=== PATIENT | female | born 1955 | race Hispanic/Latino ===

== ENCOUNTER 2018-12-16 14:22 | Emergency (ER) | payer SELFPAY ==
--- NOTE | 2018-12-16 16:46 | EDPHYS ---
Physician Documentation [facility] Name: Liz Coy Age: 63 yrs Sex: Female : 1955 Arrival Date: 12/16/2018 Time: 14:25 Bed 9 Private MD: ED Physician Jeff Andrade HPI: 12/16 16:51 This 63 yrs old Female presents to ER via Ambulatory with complaints of Insect snw Bite. 16:51 pt states she was bitten by an insect one week ago to right flank. Onset: The snw symptoms/episode began/occurred suddenly, 1 week(s) ago, and became persistent. Severity of symptoms: At their worst the symptoms were very mild mild. It is unknown whether or not the patient has had similar symptoms in the past. It is unknown whether or not the patient has recently seen a physician. hx of IDDM, history of previous abscess to lower leg. Historical: - Allergies: 14:37 No Known Allergies; hb - Home Meds: 14:37 Lantus 100 unit/mL Sub-Q soln [Active]; Lisinopril Oral [Active]; hb - PMHx: 14:37 Hypertension; Diabetes - IDDM; hb - PSHx: 14:37 Rotator cuff left; Carpal Tunnel Repair; breast left; ; hb - Immunization history:: Adult Immunizations up to date. - Social history:: Smoking status: Patient/guardian denies using tobacco. - Ebola Screening: : No symptoms or risks identified at this time. ROS: 16:50 Constitutional: Negative for fever, chills, and weight loss, Eyes: Negative for injury, snw pain, redness, and discharge, ENT: Negative for injury, pain, and discharge, Neck: Negative for injury, pain, and swelling, Cardiovascular: Negative for chest pain, palpitations, and edema, Respiratory: Negative for shortness of breath, cough, wheezing, and pleuritic chest pain, Abdomen/GI: Negative for abdominal pain, nausea, vomiting, diarrhea, and constipation, Back: Negative for injury and pain, : Negative for injury, bleeding, discharge, and swelling, MS/Extremity: Negative for injury and deformity, Neuro: Negative for headache, weakness, numbness, tingling, and seizure, Psych: Negative for depression, anxiety, suicide ideation, homicidal ideation, and hallucinations. 16:50 Skin: Positive for insect bite to right flank area. Exam: 16:48 Constitutional: This is a well developed, well nourished patient who is awake, alert, snw and in no acute distress. Head/Face: Normocephalic, atraumatic. Eyes: Pupils equal round and reactive to light, extra-ocular motions intact. Lids and lashes normal. Conjunctiva and sclera are non-icteric and not injected. Cornea within normal limits. Periorbital areas with no swelling, redness, or edema. ENT: Nares patent. No nasal discharge, no septal abnormalities noted. Tympanic membranes are normal and external auditory canals are clear. Oropharynx with no redness, swelling, or masses, exudates, or evidence of obstruction, uvula midline. Mucous membranes moist. Neck: Trachea midline, no thyromegaly or masses palpated, and no cervical lymphadenopathy. Supple, full range of motion without nuchal rigidity, or vertebral point tenderness. No Meningismus. Chest/axilla: Normal chest wall appearance and motion. Nontender with no deformity. No lesions are appreciated. Cardiovascular: Regular rate and rhythm with a normal S1 and S2. No gallops, murmurs, or rubs. Normal PMI, no JVD. No pulse deficits. Respiratory: Lungs have equal breath sounds bilaterally, clear to auscultation and percussion. No rales, rhonchi or wheezes noted. No increased work of breathing, no retractions or nasal flaring. Abdomen/GI: Soft, non-tender, with normal bowel sounds. No distension or tympany. No guarding or rebound. No evidence of tenderness throughout. Skin: Warm, dry with normal turgor. Normal color with no rashes, no lesions, and no evidence of cellulitis. MS/ Extremity: Pulses equal, no cyanosis. Neurovascular intact. Full, normal range of motion. Neuro: Awake and alert, GCS 15, oriented to person, place, time, and situation. Cranial nerves II-XII grossly intact. Motor strength 5/5 in all extremities. Sensory grossly intact. Cerebellar exam normal. Normal gait. Psych: Awake, alert, with orientation to person, place and time. Behavior, mood, and affect are within normal limits. 16:48 Back: pain, that is very mild, of the right mid back, mild cellulitis post insect bite one week ago, area minimally indurated, not draining but + opening to mid aspect of widest area of induration. Vital Signs: 14:37 BP 158 / 85; Pulse 96; Resp 16; Temp 97.3(TE); Pulse Ox 97% on R/A; Pain 0/10; hb 17:06 BP 145 / 78; Pulse 90; Resp 18; Pulse Ox 100% on R/A; Pain 2/10; mg2 MDM: 16:28 Patient medically screened. snw 16:50 Data reviewed: vital signs, nurses notes. Data interpreted: Pulse oximetry: on room air snw is 97 %. Interpretation: acceptable. Counseling: I had a detailed discussion with the patient and/or guardian regarding: the historical points, exam findings, and any diagnostic results supporting the discharge/admit diagnosis, the need for outpatient follow up, to return to the emergency department if symptoms worsen or persist or if there are any questions or concerns that arise at home. Special discussion: I have referred the patient to see his PCP for further evaluation of high blood pressure. I discussed in detail with the patient the higher chance of wound infection based on his presenting history. Based on the history and exam findings, there is no indication for further emergent testing or inpatient evaluation. I discussed with the patient/guardian the need to see the primary care provider for further evaluation of the symptoms. 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 Exp: mg2 11/20/2020. Lot #: [id number]. } Route: IM; Site: right deltoid; 17:06 Follow up: Response: No adverse reaction; Medication administered at discharge. mg2 17:06 Drug: Clindamycin 300 mg Route: PO; mg2 17:06 Follow up: Response: No adverse reaction; Medication administered at discharge. mg2 Disposition: 18:03 Co-signature as Attending Physician, Jeff Andrade MD. rn Disposition: 12/16/18 16:46 Discharged to Home. Impression: Cellulitis of back [any part except buttock]. - Condition is Stable. - Discharge Instructions: Skin Abscess, Cellulitis, Adult, Diabetes and Sick Day Management, VIS, Tetanus, Diphtheria (Td) - CDC, Heat Therapy. - Prescriptions for Clindamycin HCl 300 mg Oral Capsule - take 1 capsule by ORAL route every 6 hours for 10 days; 40 capsule. Tylenol- Codeine #3 300-30 mg Oral Tablet - take 2 tablet by ORAL route every 6 hours As needed; 6 tablet. - Work release form, Medication Reconciliation Form, Thank You Letter, Antibiotic Education, Prescription Opioid Use form. - Follow up: Private Physician; When: 2 - 3 days; Reason: Recheck today's complaints, Continuance of care, Re-evaluation by your physician. Follow up: Emergency Department; When: As needed; Reason: Worsening of condition. Signatures: Linda Miller, LIPCOAT SPRAYER-C LIPCOAT SPRAYER-Csnw Jeff Andrade MD MD rn Baxter, Heather, RN RN Liborio Munguia RN RN mg2 Corrections: (The following items were deleted from the chart) 17:08 16:46 12/16/2018 16:46 Discharged to Home. Impression: Cellulitis of back [any part mg2 except buttock]. Condition is Stable. Forms are Medication Reconciliation Form, Thank You Letter, Antibiotic Education, Prescription Opioid Use. Follow up: Private Physician; When: 2 - 3 days; Reason: Recheck today's complaints, Continuance of care, Re-evaluation by your physician. Follow up: Emergency Department; When: As needed; Reason: Worsening of condition. snw
--- NOTE | 2018-12-16 16:46 | ER ---
Nurse's Notes [facility] Name: Liz Coy Age: 63 yrs Sex: Female : 1955 Arrival Date: 12/16/2018 Time: 14:25 Bed 9 Private MD: Diagnosis: Cellulitis of back [any part except buttock] Presentation: 12/16 14:36 Presenting complaint: Insect bite on right flank 1 week ago. Transition of care: hb patient was not received from another setting of care. Onset of symptoms was December 10, 2018. Risk Assessment: Do you want to hurt yourself or someone else? Patient reports no desire to harm self or others. Initial Sepsis Screen: Does the patient meet any 2 criteria? No. Patient's initial sepsis screen is negative. Does the patient have a suspected source of infection? No. Patient's initial sepsis screen is negative. Care prior to arrival: None. 14:36 Method Of Arrival: Ambulatory 14:36 Acuity: EFREN 4 hb Triage Assessment: 17:07 Bite description: bite sustained to right flank by an unknown animal, animal mg2 information: vaccination(s) is unknown. General: Appears in no apparent distress. Historical: - Allergies: 14:37 No Known Allergies; hb - Home Meds: 14:37 Lantus 100 unit/mL Sub-Q soln [Active]; Lisinopril Oral [Active]; hb - PMHx: 14:37 Hypertension; Diabetes - IDDM; hb - PSHx: 14:37 Rotator cuff left; Carpal Tunnel Repair; breast left; ; hb - Immunization history:: Adult Immunizations up to date. - Social history:: Smoking status: Patient/guardian denies using tobacco. - Ebola Screening: : No symptoms or risks identified at this time. Screenin:32 Abuse screen: Denies threats or abuse. Denies injuries from another. Nutritional mg2 screening: No deficits noted. Tuberculosis screening: No symptoms or risk factors identified. Fall Risk None identified. Assessment: 16:30 General: Appears in no apparent distress. comfortable, Behavior is calm, cooperative. mg2 Pain: Complains of pain in right flank Pain does not radiate. Pain currently is 1 out of 10 on a pain scale. Quality of pain is described as aching, Pain began gradually. Neuro: Level of Consciousness is awake, alert, obeys commands, Oriented to person, place, time, situation. Cardiovascular: Capillary refill < 3 seconds Patient's skin is warm and dry. Respiratory: Airway is patent Respiratory effort is even, unlabored, Respiratory pattern is regular, symmetrical. GI: No signs and/or symptoms were reported involving the gastrointestinal system. : No signs and/or symptoms were reported regarding the genitourinary system. EENT: No signs and/or symptoms were reported regarding the EENT system. Derm: Skin is healthy with good turgor, Skin is pink, warm \T\ dry. normal, abscess. Musculoskeletal: No signs and/or symptoms reported regarding the musculoskeletal system. Vital Signs: 14:37 BP 158 / 85; Pulse 96; Resp 16; Temp 97.3(TE); Pulse Ox 97% on R/A; Pain 0/10; hb 17:06 BP 145 / 78; Pulse 90; Resp 18; Pulse Ox 100% on R/A; Pain 2/10; mg2 ED Course: 14:25 Patient arrived in ED. as 14:36 Triage completed. hb 14:37 Arm band placed on. hb 16:19 Daksha Spann, RN is Primary Nurse. aa5 16:28 Linda Miller FNP-C is PHCP. snw 16:28 Jeff Andrade MD is Attending Physician. snw 16:33 No provider procedures requiring assistance completed. Patient did not have IV access mg2 during this emergency room visit. 17:07 Patient has correct armband on for positive identification. 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 Exp: mg2 11/20/2020. Lot #: [id number]. } Route: IM; Site: right deltoid; 17:06 Follow up: Response: No adverse reaction; Medication administered at discharge. mg2 17:06 Drug: Clindamycin 300 mg Route: PO; mg2 17:06 Follow up: Response: No adverse reaction; Medication administered at discharge. mg2 Outcome: 16:46 Discharge ordered by . snw 17:07 Discharged to home ambulatory, with family. mg2 17:07 Condition: stable 17:07 Discharge instructions given to patient, family, Instructed on discharge instructions, follow up and referral plans. medication usage, Demonstrated understanding of instructions, follow-up care, medications, Prescriptions given X 2. 17:08 Patient left the ED. mg2 Signatures: Linda Miller, VECTOR CONTROL ASSISTANT-C VECTOR CONTROL ASSISTANT-Csnw Cherie Greenberg Audri RN RN aa5 Cintia Jara, LIZA RN Liborio Munguia RN RN mg2 Corrections: (The following items were deleted from the chart) 14:52 14:37 BP 158 / 85; Pulse 96bpm; Resp 16bpm; Pulse Ox 97% RA; Temp 79.3F; Pain 0/10; hb hb
[2018-12-16] MEDS ORDERED: TETANUS & DIPHTHERIA TOX,ADULT 0.5 ML VIAL ONE (17:09)
[2018-12-16] MEDS ORDERED: CLINDAMYCIN HCL 150 MG CAP ONE (17:09)
== END 2018-12-16 17:08 | disposition home or self-care (01) ==
LOC: ER 14:22
DX: L03.312 Cellulitis of back [any part except buttock and flank] (principal); I10 Essential (primary) hypertension; E11.9 Type 2 diabetes mellitus without complications; Z79.4 Long term (current) use of insulin; Z23 Encounter for immunization
CPT/HCPCS: 90714; 99283

== ENCOUNTER 2023-07-30 15:06 | Inpatient (IN) | payer MEDICARE ==
[2023-07-30 16:40] LABS: Absolute Lymphocytes (CBC) 1.3 K/uL (0.7-4.9); Hematocrit 32.8 % (36.0-45.0); Lymphocytes % 15.7 % (15.3-44.8); MCV 88.1 fL (80-100); MPV 8.7 fL (7.6-11.3); Platelets 165 thou/uL (152-406); RBC Red Blood Cell Count 3.73 M/uL (3.86-4.86)
[2023-07-30 16:46] LABS: Protime INR 1.08
[2023-07-30 16:57] LABS: Albumin 2.7 g/dL (3.4-5.0); Bilirubin Total 0.7 mg/dL (0.2-1.0); Potassium 3.5 mEq/L (3.5-5.1); Protein, Total 6.7 g/dL (6.4-8.2)
[2023-07-30] MEDS ORDERED: VANCOMYCIN 1.75 GM in NA CHLORIDE 0.9% 500 ML IVPB ONE (17:00)
--- NOTE | 2023-07-30 18:12 | RAD REPORT ---
EXAM DESCRIPTION: CT - Pelvis W/Cont - 07/30/2023 5:27 pm CLINICAL HISTORY: L buttock infection COMPARISON: No comparisons TECHNIQUE: Thin cut axial CT imaging of the pelvis was performed following intravenous administratio n of 100 mL Isovue 300. Multiplanar reformats were generated and reviewed. All CT scans are performed using dose optimization technique as appropriate and may include automated exposure control or mA/KV adjustment according to patient size. FINDINGS: Inflammatory fat stranding with soft tissue swelling involving the gluteal muscle compartm ents, and surrounding the left greater trochanter. Soft tissue swelling with subcutaneous edema exten ds more superficially. The included lateral upper thigh demonstrates skin thickening, although the re mainder of the gluteal region is excluded from the imaging. In the pelvis, mild distal colonic diverticulosis is noted. No evidence of dilated bowel loops or bow el wall thickening. No free air, free fluid or inflammatory stranding. No hernia, mass or bulky lymph adenopathy. The urinary bladder is without significant finding. No suspicious bony findings. IMPRESSION: Inflammatory fat stranding involving the musculature of the pelvis and soft tissues estelita cent to the greater trochanter, suggesting cellulitis, without appreciable fluid collections. No appr eciable sinus tracts. Some of the superficial soft tissues along the left gluteal region most lateral ly are excluded from the imaging.
--- NOTE | 2023-07-30 19:10 | ER ---
Nurse's Notes [facility] Name: Liz Coy Age: 67 yrs Sex: Female : 1955 Arrival Date: 07/30/2023 Time: 15:06 Bed 15 Private MD: Diagnosis: Cellulitis of buttock Presentation: 07/30 15:33 Chief complaint: Patient states: Wound to left him onset July 07. Pt was seen by cm10 policy specialist and was told that she needed to be direct admitted to the hospital due to the wound being infected but could not be admitted to the hospital due to them not accepting her insurance. Coronavirus screen: Vaccine status: Patient reports being unvaccinated. Client denies travel out of the [place] in the last 14 days. Ebola Screen: Patient denies travel to an Ebola-affected area in the 21 days before illness onset. No symptoms or risks identified at this time. Initial Sepsis Screen: Does the patient meet any 2 criteria? HR > 90 bpm. Does the patient have a suspected source of infection? Yes: Skin breakdown/wound. Risk Assessment: Do you want to hurt yourself or someone else? Patient reports no desire to harm self or others. Onset of symptoms was July 30, 2023. 15:33 Method Of Arrival: Ambulatory 10 15:33 Acuity: EFREN 3 cm10 Triage Assessment: 15:36 General: Appears in no apparent distress. comfortable, Behavior is calm, cooperative. cm10 Historical: - Allergies: 15:35 No Known Allergies; cm10 - PMHx: 15:35 Diabetes - IDDM; Hypertension; cm10 - Immunization history:: Adult Immunizations unknown. - Social history:: Smoking status: unknown. Screenin:[address] [facility] ED Fall Risk Assessment (Adult) History of falling in the last 3 months, ko1 including since admission Yes- single mechanical fall (1 pt) Confusion or Disorientation No (0 pts) Intoxicated or Sedated No (0 pts) Impaired Gait No (0 pts) Mobility Assist Device Used No (0 pt) Altered Elimination No (0 pt) Score/Fall Risk Level 0 - 2 = Low Risk Oriented to surroundings, Maintained a safe environment, Educated pt \T\ family on fall prevention, incl call for assistance when getting out of bed, Assessed \T\ reinforced patient's understanding of fall precautions, Provided non-skid footwear, Hourly rounding (assess needs \T\ fall precautionary measures) done, Used ambulatory aids as needed (educated on \T\ assisted with), Used gait belt as appropriate. Abuse screen: Denies threats or abuse. Denies injuries from another. Nutritional screening: No deficits noted. Tuberculosis screening: No symptoms or risk factors identified. Assessment: 16:00 General: Appears in no apparent distress. Behavior is calm, cooperative, appropriate ko1 for age. Pain:. Neuro: No deficits noted. Cardiovascular: No deficits noted. GI: No deficits noted. : No deficits noted. EENT: No deficits noted. 16:00 Respiratory: No deficits noted. ko1 16:00 Pain: Complains of pain in left hip/buttock. Derm: Wound noted left hip/buttock. ko1 Musculoskeletal: No deficits noted. 19:00 General: Appears in no apparent distress. uncomfortable, Behavior is calm, cooperative. jw7 Pain: Complains of pain in lateral aspect of left thigh, buttocks and pelvis Pain does not radiate. Pain currently is 3 out of 10 on a pain scale. Quality of pain is described as throbbing, stinging, Is continuous, Alleviated by medications, rest, Aggravated by increased activity, repositioning, Noted to be grimacing, resistant to movement. Neuro: Nesbitt Agitation-Sedation Scale (RASS): 0 - Alert and Calm Level of Consciousness is awake, alert, obeys commands, Oriented to person, place, time, situation. Cardiovascular: No deficits noted. Respiratory: No deficits noted. GI: No deficits noted. No signs and/or symptoms were reported involving the gastrointestinal system. : No deficits noted. No signs and/or symptoms were reported regarding the genitourinary system. EENT: No deficits noted. No signs and/or symptoms were reported regarding the EENT system. Derm: Wound noted left hip and lateral aspect of left thigh. Musculoskeletal: Swelling present in right leg and left leg. 20:20 Reassessment: Patient appears in no apparent distress at this time. No changes from jw7 previously documented assessment. Patient and/or family updated on plan of care and expected duration. Pain level reassessed. Patient is alert, oriented x 3, equal unlabored respirations, skin warm/dry/pink. 21:17 Reassessment: Patient appears in no apparent distress at this time. No changes from jw7 previously documented assessment. Patient and/or family updated on plan of care and expected duration. Pain level reassessed. Patient is alert, oriented x 3, equal unlabored respirations, skin warm/dry/pink. 21:24 General: attempted to call report, nurse will call back. 7 Vital Signs: 15:33 BP 105 / 74; Pulse 102; Resp 18; Temp 98.1; Pulse Ox 96% on R/A; Weight 120.66 kg; cm10 Height 5 ft. 5 in. ; 17:00 BP 109 / 65; Pulse 83; Resp 16; Pulse Ox 98% ; ko1 18:21 BP 105 / 60; Pulse 77; Resp 18; Pulse Ox 99% ; ko1 19:07 BP 105 / 50; Pulse 78; Resp 17; Pulse Ox 97% ; jw7 20:51 BP 96 / 48; Pulse 75; Resp 17 S; Pulse Ox 97% on R/A; jw7 21:17 BP 103 / 50; Pulse 74; Resp 16 S; Pulse Ox 96% on R/A; jw7 15:33 Body Mass Index 44.26 (120.66 kg, 165.1 cm) cm10 ED Course: 15:09 Patient arrived in ED. mr 15:33 Brendon Bates MD is Attending Physician. ec2 15:35 Triage completed. cm10 15:36 Arm band placed on Patient placed in waiting room. cm10 15:50 Felisa Looney, LIZA is Primary Nurse. ko1 16:00 Patient has correct armband on for positive identification. Bed in low position. Call ko1 light in reach. Side rails up X2. Provided Education on: na. Pulse ox on. NIBP on. Door closed. Noise minimized. Lights dimmed. Warm blanket given. 16:00 Inserted saline lock: 20 gauge in left forearm, using aseptic technique. Blood ko1 collected. 16:23 Blood Culture Adult (2) Sent. ko1 16:23 CBC with Diff Sent. ko1 16:23 CMP Sent. ko1 16:23 Lactate w/ 2H reflex if indic. Sent. ko1 16:23 Protime (+inr) Sent. ko1 16:23 Ptt, Activated Sent. ko1 17:29 CT Pelvis w cont In Process Unspecified. EDMS 19:10 Maximus Worthington MD is Hospitalizing Provider. ec2 20:11 Primary Nurse role handed off by Felisa Looney, LIZA as6 20:50 Mercedes Sigala, RN is Primary Nurse. jw7 21:23 No provider procedures requiring assistance completed. Patient admitted, IV remains in jw7 place. Administered Medications: 16:19 Drug: vancoMYCIN IVPB 15 mg/kg IVPB once; once over 2 hrs; not to exceed 2 grams; (mix db in 250 to 500 mL NS) Route: IVPB; Site: left forearm; 19:49 Follow up: Response: No adverse reaction; IV Status: Completed infusion; IV Intake: jw7 250ml Medication: 18:21 VIS not applicable for this client. ko1 Intake: 19:49 IV: 250ml; Total: 250ml. [facility] Outcome: 19:10 Decision to Hospitalize by Provider. ec2 21:23 Admitted to Tele accompanied by nurse, via wheelchair, room 427, jw7 21:23 Condition: stable 21:23 Instructed on the need for admit, Demonstrated understanding of instructions, 21:57 Patient left the ED. kl Signatures: Dispatcher [employer] EDFina Rocha, RN LIZA Gracia Elaine, Reg Reg DenzelkeniaHumberto chaudhary, RN RN as6 Mercedes Sigala, RN RN jw Felisa Looney, LIZA RN ko1 Elizabeth Tate RN RN db Martinez, Clarissa, RN RN cmBrendon Blakely MD MD ec2 Corrections: (The following items were deleted from the chart) 15:36 15:33 Chief complaint: Patient states: Wound to left him onset July 07. Pt was seen cm10 by doctor and was told that she needed to be direct admitted to the hospital due to the wound being infected but could not be admitted to the hospital due to them not accepting her insurance. cm10 17:43 16:00 Respiratory: No deficits noted. ko1 ko1
--- NOTE | 2023-07-30 19:11 | EDPHYS ---
Physician Documentation [facility] Name: Liz Coy Age: 67 yrs Sex: Female : 1955 Arrival Date: 07/30/2023 Time: 15:06 Bed 15 Private MD: ED Physician Brendon Bates HPI: 07/30 15:43 This 67 yrs old Female presents to ER via Ambulatory with complaints of Wound ec2 Infection. 15:43 Patient arrives today due to concern for left buttock wound. He states that ec2 approximately 1 month ago she had a pressure ulcer and is concerned that she is now having an infection at this area. States that she has been changing the bandages at home and maybe has noted some discharge. Patient reports no fevers or chills, no nausea or vomiting. Patient is not currently on antibiotics for this. Patient states that she was seen by seed and fertilizer specialist and told to have further assessment for this.. Historical: - Allergies: 15:35 No Known Allergies; cm10 - PMHx: 15:35 Diabetes - IDDM; Hypertension; cm10 - Immunization history:: Adult Immunizations unknown. - Social history:: Smoking status: unknown. ROS: 15:43 Constitutional: as per hpi ec2 Exam: 15:43 Constitutional: GEN: NAD Head: atraumatic Eyes: EOMI Ears: External ears are ec2 normal. CV: regular rate LUNGS: no respiratory distress ABD: non-distended SKIN: Left buttock with large 6 x 6 cm lesion, well-healing eschar noted, surrounding erythema with questionable drainage appreciated, no significant fluctuance appreciated. MSK: no evidence of trauma NEURO: moves all extremities equally Vital Signs: 15:33 BP 105 / 74; Pulse 102; Resp 18; Temp 98.1; Pulse Ox 96% on R/A; Weight 120.66 kg; cm10 Height 5 ft. 5 in. ; 17:00 BP 109 / 65; Pulse 83; Resp 16; Pulse Ox 98% ; ko1 18:21 BP 105 / 60; Pulse 77; Resp 18; Pulse Ox 99% ; ko1 19:07 BP 105 / 50; Pulse 78; Resp 17; Pulse Ox 97% ; jw7 20:51 BP 96 / 48; Pulse 75; Resp 17 S; Pulse Ox 97% on R/A; jw7 21:17 BP 103 / 50; Pulse 74; Resp 16 S; Pulse Ox 96% on R/A; jw7 15:33 Body Mass Index 44.26 (120.66 kg, 165.1 cm) cm10 MDM: 15:33 Patient medically screened. ec2 15:43 ED course: Patient arrives today due to concern for wound infection. Examination ec2 remarkable for skin findings as noted above. Will obtain lab work, CT of the pelvis with contrast and give the patient empiric antibiotics. Currently considering process such as soft tissue skin infection, osteomyelitis, low suspicion for abscess, also considering generally poor healing wound.. 16:58 ED course: Patient's lab work remarkable for reassuring CBC without leukocytosis, ec2 metabolic profile with appropriate electrolytes and slightly diminished renal function with a GFR 53, lactic acid within normal ranges. . 19:09 ED course: I discussed the results with the patient and recommended inpatient admission ec2 given the extent of the wound. Patient has multiple comorbidities that predispose her to poor wound healing I feel she would be best suited in the inpatient setting. I discussed case with hospitalist who agrees to accept the patient for admission.. 19:10 Data reviewed: vital signs. ec2 07/30 15:43 Order name: Blood Culture Adult (2) ec2 07/30 15:43 Order name: CBC with Diff; Complete Time: 16:58 ec2 07/30 15:43 Order name: CMP; Complete Time: 16:58 ec2 07/30 15:43 Order name: Lactate w/ 2H reflex if indic.; Complete Time: 16:58 ec2 07/30 15:43 Order name: Protime (+inr); Complete Time: 16:58 ec2 07/30 15:43 Order name: Ptt, Activated; Complete Time: 16:58 ec2 07/30 20:51 Order name: Urinalysis w/ reflexes EDMS 07/30 20:55 Order name: Vancomycin Level Trough EDMS 07/30 15:43 Order name: CT Pelvis w cont; Complete Time: 18:20 ec2 07/30 15:43 Order name: EKG; Complete Time: 15:43 ec2 07/30 20:51 Order name: [facility] EDMS 07/30 15:43 Order name: Accucheck; Complete Time: 18:56 ec2 07/30 15:43 Order name: Cardiac monitoring; Complete Time: 15:51 ec2 07/30 15:43 Order name: EKG - Nurse/Tech; Complete Time: 18:56 ec2 07/30 15:43 Order name: IV Saline Lock - Large Bore; Complete Time: 16:23 ec2 07/30 15:43 Order name: Labs collected and sent; Complete Time: 16:23 ec2 07/30 15:43 Order name: O2 Per Protocol; Complete Time: 15:52 ec2 07/30 15:43 Order name: O2 Sat Monitoring; Complete Time: 15:52 ec2 07/30 15:43 Order name: Vital Signs; Complete Time: 15:52 ec2 Administered Medications: 16:19 Drug: vancoMYCIN IVPB 15 mg/kg IVPB once; once over 2 hrs; not to exceed 2 grams; (mix db in 250 to 500 mL NS) Route: IVPB; Site: left forearm; 19:49 Follow up: Response: No adverse reaction; IV Status: Completed infusion; IV Intake: jw7 250ml Disposition Summary: 07/30/23 19:10 Hospitalization Ordered Notes: Hospitalization Status: Inpatient Admission ec2 Provider: Maximus Worthington ec2 Location: Telemetry/MedSurg (Inpatient) ec2 Condition: Stable ec2 Problem: an acute exacerbation ec2 Symptoms: are unchanged ec2 Bed/Room Type: Standard ec2 Room Assignment: [facility](07/30/23 21:06) Diagnosis - Cellulitis of buttock ec2 Forms: - Medication Reconciliation Form ec2 - SBAR form ec2 - Leadership Thank You Letter ec2 Signatures: Dispatcher [employer] Garima Maradiaga RN RN mw Elizabeth Tate RN RN db Martinez, Clarissa, RN RN 10 Brendon Bates MD MD ec2 Mercedes Sigala RN jw7 Corrections: (The following items were deleted from the chart) 21:06 19:10 ec2 mw
[2023-07-30] MEDS ORDERED: ACETAMINOPHEN 325 MG TABLET PO PRN (20:46)
[2023-07-30] MEDS ORDERED: ONDANSETRON 4 MG/2 ML VIAL IV PRN (20:46)
--- NOTE | 2023-07-30 20:54 | P.HP ---
Certification for Inpatient Patient admitted to: Inpatient With expected LOS: >2 Midnights Practitioner: I am a practitioner with admitting privileges, knowledge of patient current condition, hospital course, and medical plan of care. Services: Services provided to patient in accordance with Admission requirements found in Title 42 Section 412.3 of the Code of Federal Regulations Patient History Date of Service: 07/31/23 Reason for admission: Keep wound infection. History of Present Illness: 67-year-old female patient with medical history significant for diabetes type 2, hypertension who recently developed a wound. She was being taken care of on outpatient basis by her daughter and recently developed increased pain in the wound with some redness. No issues with recent trauma, fever, chills, rigor, nausea, vomiting, diarrhea. She reported that that has been taking care of her wound for the past couple of weeks however because of increased redness she decided to come to the hospital. She was evaluated and found to have suspicion for infection so she was admitted for inpatient care. Allergies No Known Allergies Allergy (Unverified 11/30/15 18:17) Home Medications: Lisinopril [Zestril] 10 mg PO DAILY 11/30/15 Insulin Degludec [Tresiba Flextouch U-200] 40 units SQ DAILY 07/31/23 Rosuvastatin [Crestor*] 10 mg PO DAILY 07/31/23 carvediloL [Coreg*] 6.25 mg PO BID 07/31/23 - Past Medical/Surgical History Diabetic: Yes -: Hypertension -: Hyperlipidemia -: Rotator cuff-left -: carpal tunnel repair -: breast left -: Review of Systems General: Unremarkable Eyes: Unremarkable ENT: Unremarkable Respiratory: Unremarkable Cardiovascular: Unremarkable Gastrointestinal: Unremarkable Genitourinary: Unremarkable Musculoskeletal: Unremarkable Integumentary: Lesions Neurological: Unremarkable Physical Examination - Physical Exam General: Alert, Oriented x3 HEENT: Atraumatic, Normocephalic Neck: Supple Respiratory: Normal air movement Cardiovascular: Regular rate/rhythm, Normal S1 S2 Gastrointestinal: Soft and benign Integumentary: Skin breakdown, Skin lesion Neurological: Normal speech, Normal strength at 5/5 x4 extr - Studies Laboratory Data (last 24 hrs) 07/30/23 07/30/23 07/30/23 16:17 16:17 16:17 WBC 8.20 Hgb 11.0 L Hct 32.8 L Plt Count 165 PT 11.9 INR 1.08 APTT 34.1 Sodium 139 Potassium 3.5 BUN 20 H Creatinine 1.12 H Glucose 187 H Total Bilirubin 0.7 AST 11 L ALT 19 Alkaline Phosphatase 80 Assessment and Plan - Plan Hip wound infection: Patient has significant wound infection deemed stage II/III decubitus ulcer. There is a scab over wound. We will continue empiric antibiotic therapy with vancomycin and cefepime. Cultures were taken.. We will continue routine wound care and wound care center consult has been placed. We will make final plans for outpatient care. Diabetes type 2: We will continue sliding scale insulin for glucose control outpatient antidiabetic medications. Carb restricted diet to be continued. Hypertension: We will monitor vital signs per protocol and continue antihyperte nsive medications. Hyperlipidemia: We will continue statin therapy. Prophylaxis: Lovenox for DVT prophylaxis CODE STATUS: Full code Disposition: We will make final recommendation for hip wound and treat infectious process in the wound and discharge her when her care plan is finalized. - Advance Directives Does patient have a Living Will: No Does patient have a Durable POA for Healthcare: No
[2023-07-30] MEDS ORDERED: VANCOMYCIN 1.5 GM in NA CHLORIDE 0.9% 500 ML IVPB SCH (21:00)
[2023-07-30] MEDS: NA CHLORIDE 0.9% 1,000 ML IV SCH (21:00)
[2023-07-31] MEDS ORDERED: D50W 25 GM/50 ML SYRINGE IV PRN (03:39)
[2023-07-31] MEDS ORDERED: GLUCAGON 1 MG/VIAL IM PRN (03:39)
[2023-07-31] MEDS ORDERED: D10W 125 ML IV PRN (03:58)
[2023-07-31] MEDS: NA CHLORIDE 0.9% 1,000 ML IV SCH ×2 (07:00→18:57)
[2023-07-31] MEDS: INSULIN REGULAR (HUMAN) 100 UNIT/ML SQ SCH ×4 (07:30→21:19)
--- NOTE | 2023-07-31 08:57 | P.PN ---
Subjective Date of Service: 07/31/23 Chief Complaint: Hip wound infection. Subjective: No new changes Review of Systems 10-point ROS is otherwise unremarkable Musculoskeletal: Other (hip pain) Physical Examination - Vital Signs Temperature: 97.8 F Blood Pressure: 107/46 Pulse: 68 Respirations: 16 Pulse Ox (%): 94 - Physical Exam General: Alert, In no apparent distress, Oriented x3 HEENT: Atraumatic, PERRLA, EOMI Neck: Supple, JVD not distended Respiratory: Clear to auscultation bilaterally, Normal air movement Cardiovascular: Regular rate/rhythm, Normal S1 S2 Gastrointestinal: Normal bowel sounds, No tenderness Musculoskeletal: No tenderness Integumentary: Diabetic ulcer, Pressure ulcer (Left lateral thight area with surrounding cellulitis) Neurological: Normal speech, Normal tone, Normal affect Lymphatics: No axilla or inguinal lymphadenopathy - Studies Laboratory Data (last 24 hrs) 07/30/23 07/30/23 07/30/23 16:17 16:17 16:17 WBC 8.20 Hgb 11.0 L Hct 32.8 L Plt Count 165 PT 11.9 INR 1.08 APTT 34.1 Sodium 139 Potassium 3.5 BUN 20 H Creatinine 1.12 H Glucose 187 H Total Bilirubin 0.7 AST 11 L ALT 19 Alkaline Phosphatase 80 Assessment And Plan - Plan Assessment: Pressure/diabetic ulceration left lateral thigh with surrounding cellulitis Diabetes mellitus type 2insulin-dependent Hypertension Hyperlipidemia Plan: Pressure/diabetic ulceration left lateral thigh with surrounding cellulitis General surgery/ID/wound healing consult-appreciate input Empiric Vanc/cefepime, follow blood cultures Diabetes mellitus type 2insulin-dependent ACHS accucheck SSI, reduced dose long acting. Hypertension Hyperlipidemia Continue home meds DVT PPX: Lovenox Code status: Full Discharge Plan: Home Plan to discharge in: 48 Hours - Code Status/Comfort Care Code Status Assessed: Yes (Full ) Critical Care: No Time Spent Managing PTS Care (In Minutes): 20
[2023-07-31] MEDS: ENOXAPARIN 40 MG/0.4 ML SQ SCH (09:00)
--- NOTE | 2023-07-31 11:56 | EKG ---
Test Date: 2023-07-30 Test Time: 16:44:40 Chemistry Physics Teacher: ADITHYA MEASUREMENT RESULTS: Intervals: Rate: 81 NE: 148 QRSD: 188 QT: 610 QTc: 708 [place]: P: 32 NE: 148 QRS: -10 T: 29 INTERPRETIVE STATEMENTS: Normal sinus rhythm Right atrial enlargement Nonspecific intraventricular block Possible Lateral infarct, age undetermined Abnormal ECG Compared to ECG 12/01/2015 06:58:15 Atrial abnormality now present Myocardial infarct finding now present Left ventricular hypertrophy no longer present Electronically Signed On 07-31-23 11:55:28 CDT by Toni Branch
--- NOTE | 2023-07-31 13:03 | CON ---
Date of Consultation: 07/31/2023 Reason For Consultation: Left hip wound. History Of Present Illness: Patient is a 67-year-old female with multiple medical problems, who on O ctober 1st got stuck in her tub, could not get out, stayed there for 25 hours before she was removed and went to the ER in [facility], was discharged with the basic wound care instructions. Howev er, wound has not healed, it got worse, increasing redness, no discharge. No fever or chills. No so re throat, runny nose, cough, headaches, or dizziness. No chest pain. Review of Systems: Otherwise, unremarkable. Past Medical History: Morbid obesity, hypertension, hyperlipidemia. Past Surgical History: Rotator cuff, left-sided repair; carpal tunnel repair; breast lift; and C-sec tion. Allergies: NONE. Social History: Patient does not smoke or drink. Family History: Noncontributory. Physical Examination: Vital Signs: Stable. She is afebrile. General: Awake, alert, oriented x3. Head and Neck: No masses. Chest: Clear. Heart: S1, S2. Abdomen: Soft. Extremities: Neurovascularly intact. Left hip: There is approximately a 10 x 15 cm area of erythem a, slight warmth with a central necrotic eschar present, black in color. No purulent discharge. No fluctuance per se. Neuro: Nonfocal. Laboratory Data: White count is 8.2, left shift. INR is 1.08. Chemistry reviewed. Lactic acid is 0.9. CT of the pelvis reviewed shows inflammatory fat stranding involving the musculature of the pel vis, soft tissue adjacent to the greater trochanter suggesting cellulitis without appreciable fluid c ollection. No soft tissue along the gluteal region most laterally are excluded from the i maging. Assessment: Left hip infected wound with cellulitis and necrotic eschar. Recommendations: NPO, IV fluids, IV antibiotics, to the OR for debridement of this wound. Patient u nderstands risks, benefits, alternatives and agrees to procedure. Based on the finding, most likely the patient would benefit from a wound VAC with collagenase dressing. /MODL Voice ID: [id number] Report ID: [id number]
[2023-07-31] MEDS ORDERED: NA CHLORIDE 0.9% 1,000 ML ONE (15:39)
--- NOTE | 2023-07-31 15:51 | P.CNS ---
Date of Consult: 07/31/23 Chief Complaint: Hip wound infection. History of Present Illness: Patient is a 67 yo female with a past medical history of diabetes mellitus type II, hypertension, obesity and hyperlipidemia who presented to the ED with complaints of worsening left hip wound. She reports being stuck in a bathtub for 24 hours a 3 weeks ago which resulted in a wound. She was seen at an outside ER and sent home with wound care instructions. The wound has been worsening with increasing erythema for which prompted her to present to the ED here at [facility]. She was admitted for cellulitis left hip. Infectious disease and general surgery consulted. Allergies No Known Allergies Allergy (Unverified 11/30/15 18:17) Home Medications: Lisinopril [Zestril] 10 mg PO DAILY 11/30/15 Insulin Degludec [Tresiba Flextouch U-200] 40 units SQ DAILY 07/31/23 Rosuvastatin [Crestor*] 10 mg PO DAILY 07/31/23 carvediloL [Coreg*] 6.25 mg PO BID 07/31/23 - Past Medical/Surgical History Diabetic: Yes -: Hypertension -: Hyperlipidemia -: Rotator cuff-left -: carpal tunnel repair -: breast left -: - Social History Smoking Status: Unknown if ever smoked Alcohol use: No CD- Drugs: No Place of Residence: Home Review of Systems 10-point ROS is otherwise unremarkable Integumentary: As per HPI Physical Examination Temp Pulse Resp BP Pulse Ox 97.7 F 75 16 108/62 95 07/31/23 11:41 07/31/23 11:41 07/31/23 11:41 07/31/23 11:41 07/31/23 11:41 General: Alert, In no apparent distress, Oriented x3 HEENT: Atraumatic, Normocephalic Neck: Supple Respiratory: Clear to auscultation bilaterally, Normal air movement Cardiovascular: Regular rate/rhythm Gastrointestinal: Normal bowel sounds, Soft and benign Integumentary: Pressure ulcer (left hip/thigh unstageable) Neurological: Normal speech, Normal tone, Normal affect Laboratory Data - Reviewed Microbiology Data - Reviewed Imagings Data: - Reviewed Conclusions/Impression: Problem List Pressure Injury Unstageable Left hip/thigh with cellulitis Diabetes Mellitus type II Hypertension Hyperlipidemia Unstageable Pressure Injury Left Hip/Thigh Cellulitis - Currently on Cefepime and Vancomycin (started 07/31) - Wound cultures 07/30: pending - Pending debridement this afternoon Blood cultures 07/30: Pending WBC 8.2 Afebrile. Recommendations - Continue Cefepime and Vancomycin for now - General surgery Dr. Oneill consulted for debridement. Scheduled for this afternoon. - Follow up with wound and blood culture results - Monitor WBC and fever trends - Wound care per Dr. Oneill Case discussed with Bautista Booth
[2023-07-31] MEDS: CEFEPIME 2 GM in NA CHLORIDE 0.9% 100 ML IV SCH ×2 (16:05→21:14)
[2023-07-31] MEDS ORDERED: propofoL 200 MG/20 ML VIAL IV ONE (16:18)
[2023-07-31] MEDS ORDERED: MIDAZOLAM HCL 2 MG/2 ML INJ ONE (16:18)
[2023-07-31] MEDS ORDERED: FENTANYL CITR 100 MCG/2 ML ONE (16:18)
[2023-07-31] MEDS ORDERED: dexAMETHasone 10 MG/ML VIAL ONE (16:40)
[2023-07-31] MEDS ORDERED: ONDANSETRON 4 MG/2 ML VIAL ONE (16:40)
--- NOTE | 2023-07-31 16:47 | P.OP ---
Date of Service: 07/31/23 Preop diagnosis: Infected wound left hip Postop diagnosis: Same Procedure performed: Excisional debridement of infected left hip wound 9 x 7 x 4 cm to the deep subcutaneous tissue level Surgeon: Olivier Oneill MD Hat And Cap Sewer: lAee HORVATH Estimated blood loss: Minimal Specimen: Infected tissue for culture and sensitivity and pathology Findings: As above Anesthesia: General Complications: None Drains: None Fluids and blood products: Nonapplicable Disposition: Recovery room Operative note: Patient brought to the OR and placed in supine position. General anesthesia begun. Patient placed in the right lateral position. Patient prepped and draped in usual sterile fashion. Marcaine 0.5% infiltrated locally. Then 15 blade used to make a 9 x 7 cm incision around the necrotic eschar on the left lateral hip region. Cautery used to exercises and infected next necrotic eschar down through the deep subcutaneous tissue. Deepest portion of the wound was approximately 4 cm. Entire tissue was excised and a portion was sent to pathology for culture and sensitivity. Remainder was sent to pathology for cytology. Entire wound irrigated and bleeding controlled cautery. Wet-to-dry normal saline dressing change applied. Sterile dressing applied and patient awakened. Patient taken to recovery room in good general condition. CC:
[2023-07-31] MEDS: KETOROLAC 30 MG/ML INJ ONE ×2 (16:55→16:57)
[2023-07-31] MEDS: FENTANYL CITR 100 MCG/2 ML ONE ×3 (16:57→17:11)
[2023-07-31] MEDS ORDERED: HYDROMORPHONE HCL 1 MG/ML INJ IV PRN (16:58)
[2023-07-31] MEDS ORDERED: HYDROCODONE/APAP 7.5/325 MG TAB PO PRN (16:58)
[2023-07-31] MEDS ORDERED: BUPIVACAINE 0.5% PF 10 ML VIAL ONE (17:13)
[2023-07-31] MEDS ORDERED: VANCOMYCIN 2 GM in NA CHLORIDE 0.9% 500 ML IVPB SCH (18:00)
[2023-07-31] MEDS: VANCOMYCIN 2 GM in NA CHLORIDE 0.9% 500 ML IVPB SCH (18:55)
[2023-07-31] MEDS: JUVEN PACKET PO SCH (21:00)
[2023-08-01] MEDS: CEFEPIME 2 GM in NA CHLORIDE 0.9% 100 ML IV SCH ×3 (06:13→21:47)
[2023-08-01 06:51] LABS: Hematocrit 32.3 % (36.0-45.0); MCV 87.9 fL (80-100); MPV 8.7 fL (7.6-11.3); Platelets 191 thou/uL (152-406); RBC Red Blood Cell Count 3.68 M/uL (3.86-4.86)
[2023-08-01] MEDS: INSULIN REGULAR (HUMAN) 100 UNIT/ML SQ SCH ×4 (07:30→21:49)
--- NOTE | 2023-08-01 08:02 | P.PN ---
Date of Service: 08/01/23 Chief Complaint: Hip wound infection. Subjective: Patient sitting up on side of bed. In no apparent distress. She denies any new or worsening complaints. No acute events reported overnight. s/p debridement yesterday, tolerated procedure well. Physical Examination Temp Pulse Resp BP Pulse Ox 97 F 72 18 111/51 L 97 08/01/23 04:00 08/01/23 04:00 08/01/23 04:00 08/01/23 04:00 08/01/23 04:00 General: Alert, In no apparent distress, Oriented x3 HEENT: Atraumatic, Normocephalic Neck: Supple Respiratory: Clear to auscultation bilaterally, Normal air movement Cardiovascular: Regular rate/rhythm Gastrointestinal: Normal bowel sounds, Soft and benign Integumentary: Pressure ulcer left hip/thigh dressing clean dry and intact. Neurological: Normal speech, Normal tone, Normal affect Laboratory Data - Reviewed Microbiology Data - Reviewed Imagings Data: - Reviewed Medications List: Reviewed Assessment and Plan Problem List Pressure Injury Unstageable Left hip/thigh with cellulitis Diabetes Mellitus type II Hypertension Hyperlipidemia Unstageable Pressure Injury Left Hip/Thigh Cellulitis - Currently on Cefepime and Vancomycin (started 07/31) - Wound cultures 07/30: 3+ coagulase positive staph and 3+ gram negative rods - s/p debridment on 07/[address] Oneill Blood cultures 07/30: No growth to date WBC 7.6 Afebrile Recommendations - Continue Cefepime and Vancomycin for now - Follow up with wound culture results. Preliminary with coag-positive staph and gram negative rods. - Wound care per Dr. Oneill - Strict blood glucose control - Monitor WBC and fever trends Case discussed with Bautista Booth
--- NOTE | 2023-08-01 08:38 | P.PN ---
Subjective Date of Service: 08/01/23 Chief Complaint: Hip wound infection. Subjective: Improving Review of Systems 10-point ROS is otherwise unremarkable Musculoskeletal: Other (mild left hip pain) Physical Examination - Vital Signs Temperature: 97 F Blood Pressure: 111/51 Pulse: 72 Respirations: 18 Pulse Ox (%): 97 - Physical Exam General: Alert, In no apparent distress, Oriented x3 HEENT: Atraumatic, PERRLA, EOMI Neck: Supple, JVD not distended Respiratory: Clear to auscultation bilaterally, Normal air movement Cardiovascular: Regular rate/rhythm, Normal S1 S2 Capillary refill: <2 Seconds Gastrointestinal: Normal bowel sounds, No tenderness Musculoskeletal: No tenderness Integumentary: Pressure ulcer (left thigh area dressing in place) Neurological: Normal speech, Normal tone, Normal affect - Studies Medications List Reviewed: Yes Assessment And Plan - Plan Assessment: Pressure left lateral thigh with surrounding cellulitis Diabetes mellitus type 2insulin-dependent Hypertension Hyperlipidemia Plan: Pressure ulceration left lateral thigh with surrounding cellulitis Debridement performed by general surgery 07/31/2023 Empiric Vanc/cefepime, blood cultures no growth in 24 hours Wound cultures pending instructional services specialist consult in place to set up home health for assistance with wound/dressing changes Once ready for DC will need to follow-up with general surgery/wound healing in 1 week Wet-to-dry dressing changes Diabetes mellitus type 2insulin-dependent ACHS accucheck SSI, reduced dose long acting. Hypertension Hyperlipidemia Continue home meds Dispo-24 to 48 hours with home health +/- waiting on wound culture results DVT PPX: Lovenox Code status: Full Discharge Plan: Home Plan to discharge in: 24 Hours - Code Status/Comfort Care Code Status Assessed: Yes (Full) Time Spent Managing PTS Care (In Minutes): 20
[2023-08-01] MEDS: NA CHLORIDE 0.9% 1,000 ML IV SCH ×2 (08:53→13:00)
[2023-08-01] MEDS: ENOXAPARIN 40 MG/0.4 ML SQ SCH (08:54)
[2023-08-01] MEDS: INSULIN GLARGINE 100 UNIT/ML SQ SCH (08:54)
[2023-08-01] MEDS: JUVEN PACKET PO SCH ×2 (08:55→21:00)
--- NOTE | 2023-08-01 11:13 | PN ---
Date of Progress Note: 08/01/2023 Subjective: The patient is awake, alert. No complaint. Vitals stable, afebrile. Cultures pending. White count is normal. Dressing is clean, dry, intact with minimal serous drainage on the outer dr essing. Assessment: Status post excisional debridement of left hip infected wound. Recommendations: Continue wound care and IV antibiotics as ordered. The patient will plan to be dis charged home on oral antibiotics and dressing changes as ordered. [facility] and I will institute wound VAC for continued wound care. Plan of care discusse d with the hospitalist team. /MODL Voice ID: [id number] Report ID: [id number]
[2023-08-01 15:22] VITALS: O2SAT 98; BMI 44.2
[2023-08-01] MEDS: VANCOMYCIN 2 GM in NA CHLORIDE 0.9% 500 ML IVPB SCH (16:16)
[2023-08-01] MEDS ORDERED: CODEINE 30MG/APAP 300MG TAB PO PRN (17:09)
[2023-08-02] MEDS: CEFEPIME 2 GM in NA CHLORIDE 0.9% 100 ML IV SCH (06:29)
[2023-08-02 07:29] LABS: Hematocrit 28.3 % (36.0-45.0); MPV 8.3 fL (7.6-11.3); Platelets 190 thou/uL (152-406); RBC Red Blood Cell Count 3.22 M/uL (3.86-4.86)
[2023-08-02] MEDS: INSULIN REGULAR (HUMAN) 100 UNIT/ML SQ SCH (07:30)
[2023-08-02 07:42] LABS: Potassium 3.8 mEq/L (3.5-5.1)
[2023-08-02] MEDS: INSULIN GLARGINE 100 UNIT/ML SQ SCH (08:04)
[2023-08-02] MEDS: ENOXAPARIN 40 MG/0.4 ML SQ SCH (08:05)
[2023-08-02] MEDS: JUVEN PACKET PO SCH (08:05)
--- NOTE | 2023-08-02 08:31 | P.DS ---
Admission Date: 07/30/23 Discharge Date: 08/02/23 Disposition: ROUTINE DISCHARGE Discharge Condition: GOOD Reason for Admission: Hip wound infection. Consultations: ID Surgery Procedures: Surgical debridement 07/31 Brief History of Present Illness: 67-year-old female patient with medical history significant for diabetes type 2, hypertension who recently developed a wound. She was being taken care of on outpatient basis by her daughter and recently developed increased pain in the wound with some redness. No issues with recent trauma, fever, chills, rigor, nausea, vomiting, diarrhea. She reported that that has been taking care of her wound for the past couple of weeks however because of increased redness she decided to come to the hospital. She was evaluated and found to have suspicion for infection so she was admitted for inpatient care. Hospital Course: Patient presented with left hip pain and increased redness of prior wound. CT was performed in ED. Patient was found to have left hip cellulitis/abscess. General Surgery, Dr. Oneill, was consulted and performed I&D without complications. Wound culture preliminary growing Pseudomonas and coagulase positive staph. Blood cultures without growth at time of discharge. Discharged to complete 10 days of ciprofloxacin and doxycycline and local wound care. Throughout hospitalization remained afebrile and without leukocytosis. She was doing well postoperatively and stable for discharge home with home health Blood pressure was noted to be low-borderline with her anti-hypertensive medi cations held. Recommend daily blood pressure monitoring at home and restart once systolic blood pressure >140. Instructed on caution with pain medication - can further lower blood pressure and increase risk for dizziness/fall. Follow up: PCP within 1 week Wound healing center here on a weekly basis with Dr. Oneill. call for appointment Surgical INSTRUCTIONS: Wet-to-dry 0.25% acetic acid dressing changes daily No heavy lifting or strenuous exercise Follow-up next week in the wound healing center in my clinic (Dr. Oneill), call for appointment Vital Signs/Physical Exam: Temp Pulse Resp BP Pulse Ox 97.2 F 63 16 112/53 L 96 08/02/23 04:00 08/02/23 04:00 08/02/23 08:03 08/02/23 04:00 08/02/23 04:00 General: Alert, In no apparent distress, Oriented x3 HEENT: Atraumatic, PERRLA, EOMI Neck: Supple, JVD not distended Respiratory: Clear to auscultation bilaterally, Normal air movement Cardiovascular: Regular rate/rhythm, Normal S1 S2 Capillary refill: <2 Seconds Gastrointestinal: Normal bowel sounds, No tenderness Musculoskeletal: No tenderness Integumentary: No rashes Neurological: Normal speech, Normal tone, Normal affect Laboratory Data at Discharge: WBC 6.60 thou/uL (4.3-10.9) 08/02/23 07:12 Hgb 9.6 g/dL (12.0-15.0) L D 08/02/23 07:12 Hct 28.3 % (36.0-45.0) L 08/02/23 07:12 Plt Count 190 thou/uL (152-406) 08/02/23 07:12 PT 11.9 SECONDS (9.5-12.5) 07/30/23 16:17 INR 1.08 07/30/23 16:17 APTT 34.1 SECONDS (24.3-36.9) 07/30/23 16:17 Sodium 142 mEq/L (136-145) 08/02/23 07:12 Potassium 3.8 mEq/L (3.5-5.1) 08/02/23 07:12 BUN 31 mg/dL (7-18) H 08/02/23 07:12 Creatinine 0.89 mg/dL (0.55-1.02) 08/02/23 07:12 Glucose 124 mg/dL (74-106) H 08/02/23 07:12 Total Bilirubin 0.7 mg/dL (0.2-1.0) 07/30/23 16:17 AST 11 U/L (15-37) L 07/30/23 16:17 ALT 19 U/L (13-56) 07/30/23 16:17 Alkaline Phosphatase 80 U/L (45-117) 07/30/23 16:17 Home Medications: Lisinopril [Zestril] 10 mg PO DAILY 11/30/15 Insulin Degludec [Tresiba Flextouch U-200] 40 units SQ DAILY 07/31/23 Rosuvastatin [Crestor*] 10 mg PO DAILY 07/31/23 carvediloL [Coreg*] 6.25 mg PO BID 07/31/23 Acetic Acid 0.25% [Acetic Acid 0.25%*] 1,000 ml IR DAILY #1 btl 08/02/23 Ciprofloxacin HCl 500 mg PO BID 10 Days #20 tab 08/02/23 Codeine/APAP [Tylenol W/Codeine #3 tab] 1 tab PO Q6HP PRN #15 tab 08/02/23 Doxycycline Hyclate 100 mg PO BID 10 Days #20 cap 08/02/23 New Medications: Acetic Acid 0.25% [Acetic Acid 0.25%*] 1,000 ml IR DAILY #1 btl Ciprofloxacin HCl 500 mg PO BID 10 Days #20 tab Doxycycline Hyclate 100 mg PO BID 10 Days #20 cap Codeine/APAP [Tylenol W/Codeine #3 tab] 1 tab PO Q6HP PRN #15 tab PRN Reason: Pain Physician Discharge Instructions: Patient presented with left hip pain and increased redness of prior wound. CT was performed in ED. Patient was found to have left hip cellulitis/abscess. General Surgery, Dr. Oneill, was consulted and performed I&D without complications. Wound culture preliminary growing Pseudomonas and coagulase positive staph. Blood cultures without growth at time of discharge. Discharged to complete 10 days of ciprofloxacin and doxycycline and local wound care. Throughout hospitalization remained afebrile and without leukocytosis. She was doing well postoperatively and stable for discharge home with home health Blood pressure was noted to be low-borderline with her anti-hypertensive medications held. Recommend daily blood pressure monitoring at home and restart once systolic blood pressure >140. Instructed on caution with pain medication - can further lower blood pressure and increase risk for dizziness/fall. Follow up: PCP within 1 week Wound healing center here on a weekly basis with Dr. Oneill. call for appointment PROBLEM: decubitus ulcer GOAL: Clear understanding of disease process Surgical INSTRUCTIONS: Wet-to-dry 0.25% acetic acid dressing changes daily No heavy lifting or strenuous exercise Follow-up next week in the wound healing center in my clinic (Dr. Oneill), call for appointment Diet: ADA Activity: Ad emelyn Diet: ADA Activity: Ad emelyn Followup: Moris Weir MD [Primary Care Provider] - 1 Week Olivier Oneill MD [ACTIVE - CAN ADMIT] - 1 Week (Follow-up wound healing center in my clinic next week) Time spent managing pt's care (in minutes): 35
[2023-08-02] MEDS ORDERED: ACETIC ACID 0.25% IRRIG IRR SCH (09:00)
--- NOTE | 2023-08-02 09:03 | P.PN ---
Date of Service: 08/02/23 Chief Complaint: Hip wound infection. Subjective: No new or worsening complaints. Improving. Plan for discharge home on oral antibiotics and wound care. Physical Examination Temp Pulse Resp BP Pulse Ox 97.2 F 63 16 112/53 L 96 08/02/23 04:00 08/02/23 04:00 08/02/23 08:03 08/02/23 04:00 08/02/23 04:00 General: Alert, In no apparent distress, Oriented x3 HEENT: Atraumatic, Normocephalic Neck: Supple Respiratory: Clear to auscultation bilaterally, Normal air movement Cardiovascular: Regular rate/rhythm Gastrointestinal: Normal bowel sounds, Soft and benign Integumentary: Pressure ulcer left hip/thigh dressing clean dry and intact. Neurological: Normal speech, Normal tone, Normal affect Laboratory Data - Reviewed Microbiology Data - Reviewed Imagings Data: - Reviewed Medications List: Reviewed Assessment and Plan Problem List Pressure Injury Unstageable Left hip/thigh with cellulitis Diabetes Mellitus type II Hypertension Hyperlipidemia Unstageable Pressure Injury Left Hip/Thigh Cellulitis - Currently on Cefepime and Vancomycin (started 07/31) - Wound cultures 07/30: Pseudomonas aeruginosa and 3+ coagulase positive staph - s/p debridment on 07/[address] Oneill Blood cultures 07/30: No growth to date WBC 7.6 Afebrile Recommendations - Upon discharge, consider switch to Ciprofloxacin and Doxycycline PO for 10 days - Wound care per Dr. Oneill - Strict blood glucose control - Follow up with Dr. Oneill as outpatient Case discussed with Bautista Booth
[2023-08-02 10:39] VITALS: BP 102/55; TEMP 96.8
== END 2023-08-02 11:25 | disposition home health service (06) | DRG 264 ==
LOC: ER 15:06 → 4TH 20:46
PROVIDERS: ADMIT Internal Medicine Nephrology; ATTEND Hospitalist
PROC: 0JBM0ZZ Excision of Left Upper Leg Subcutaneous Tissue and Fascia, Open Approach (ICD-10-PCS; principal; 2023-07-31 16:00)
DX: E11.52 Type 2 diabetes mellitus with diabetic peripheral angiopathy with gangrene (principal); L89.323 Pressure ulcer of left buttock, stage 3; L02.416 Cutaneous abscess of left lower limb; L03.116 Cellulitis of left lower limb; Z68.41 Body mass index [BMI] 40.0-44.9, adult; E66.01 Morbid (severe) obesity due to excess calories; E11.69 Type 2 diabetes mellitus with other specified complication; I10 Essential (primary) hypertension; E78.5 Hyperlipidemia, unspecified; B96.5 Pseudomonas (aeruginosa) (mallei) (pseudomallei) as the cause of diseases classified elsewhere; Z79.4 Long term (current) use of insulin; Z79.02 Long term (current) use of antithrombotics/antiplatelets; Z79.899 Other long term (current) drug therapy
CPT/HCPCS: 36415; 72193; 80048; 80053; 80202; 82947; 83605; 85025; 85027; 85610; 85730; 87040; 87070; 87075; 87077; 87186; 87205; 88304; 93005; 94010; 96365; 96366; 99285; J0692; J1100; J1650; J1815; J2250; J2405; J2704; J3010; J7030; J7040; Q9967